=== PATIENT | female | born 1985 | race Caucasian/White ===

== ENCOUNTER 2020-12-28 19:26 | Emergency (ER) | payer BC ==
[2020-12-28] MEDS ORDERED: DESYREL DIVIDO150 M1 PO (19:39)
[2020-12-28] MEDS ORDERED: VIIBRYD40 MG PO (19:39)
[2020-12-28 20:20] VITALS: BP 110/81
== END 2020-12-28 20:20 | disposition home or self-care (01) ==
LOC: ED 19:26
DX: S61.212A Laceration without foreign body of right middle finger without damage to nail, initial encounter (principal); F32.9 Major depressive disorder, single episode, unspecified; Z88.0 Allergy status to penicillin; Z88.1 Allergy status to other antibiotic agents; Z79.899 Other long term (current) drug therapy; W26.0XXA Contact with knife, initial encounter; Y92.009 Unspecified place in unspecified non-institutional (private) residence as the place of occurrence of the external cause

== ENCOUNTER 2022-10-09 14:17 | Emergency (ER) | payer BC ==
[~2022-10-09] VITALS: Ht 170.2 cm; Wt 79.1 kg
[~2022-10-09 14:17] MED LIST: DESYREL DIVIDO150 M1 PO; VIIBRYD40 MG PO
[2022-10-09] MEDS ORDERED: SUMATRIPTAN20 MG NS (14:30)
[2022-10-09] MEDS ORDERED: PREDNISONE10 MG PO (14:30)
[2022-10-09 15:55] VITALS: BP 121/82
== END 2022-10-09 15:48 | disposition home or self-care (01) ==
LOC: ED 14:17
DX: M54.2 Cervicalgia (principal); F06.4 Anxiety disorder due to known physiological condition; F32.9 Major depressive disorder, single episode, unspecified

== ENCOUNTER 2022-11-14 14:55 | Emergency (ER) | payer BC ==
[~2022-11-14 14:55] MED LIST changes: +PREDNISONE10 MG PO; +SUMATRIPTAN20 MG NS
[2022-11-14 15:13] VITALS: BP 123/94
[2022-11-14] MEDS ORDERED: DULOXETINE20 MG PO (15:53)
[2022-11-14] MEDS ORDERED: TIZANIDINE2 MG PO (15:53)
[2022-11-14 15:54] LABS: BASO # 0.03 K/mm3 (0.02-0.10); EOS # 0.06 K/mm3 (0.04-0.40); EOS % 0.6 % (1.0-5.0); HEMATOCRIT 42.6 % (37.0-47.0); HEMOGLOBIN 14.3 g/dL (12.5-16.0); LYMPH# 1.79 K/mm3 (1.50-4.00); MEAN CELL VOLUME 93 fl (78-100); MEAN CORPUSCULAR HEMOGLOBIN 31 pg (27-31); MEAN CORPUSCULAR HGB CONC 34 g/dL (33-37); MONO # 0.68 K/mm3 (0.20-0.80); NEU # 7.27 K/mm3 (1.40-6.50); PLATELET COUNT 297 K/mm3 (130-400); RED BLOOD COUNT 4.59 M/mm3 (4.10-5.30); RED CELL DISTRIBUTION WIDTH 12.5 % (11.5-14.5); WHITE BLOOD COUNT 9.9 K/mm3 (4.8-10.8)
[2022-11-14 16:00] LABS: ALBUMIN 4.3 g/dL (3.5-5.0); POTASSIUM 3.6 mmol/L (3.5-5.1); SODIUM 138 mmol/L (136-145)
[2022-11-14 16:03] LABS: GLUCOSE 97 mg/dL (65-105); TOTAL PROTEIN 7.3 g/dL (6.4-8.3)
[2022-11-14 16:04] LABS: CARBON DIOXIDE 25 mmol/L (22-29)
[2022-11-14 16:05] LABS: TOTAL BILIRUBIN 0.3 mg/dL (0.2-1.2)
[2022-11-14 16:08] LABS: AST-SGOT 30 U/L (5-34)
[2022-11-14 16:10] LABS: ALCOHOL IN-HOUSE < 10 mg/dL (<10); ALT/SGPT 46 U/L (0-55)
[2022-11-14 16:18] LABS: URINE COLOR YELLOW
[2022-11-14 16:19] LABS: URINE APPEARANCE HAZY; URINE BILIRUBIN NEGATIVE (NEGATIVE); URINE BLOOD 50 ery/uL (NEGATIVE); URINE GLUCOSE NEGATIVE (NEGATIVE); URINE KETONE NEGATIVE (NEGATIVE); URINE LEUKOCYTE ESTERASE NEGATIVE (NEGATIVE); URINE NITRATE NEGATIVE (NEGATIVE); URINE PROTEIN(semi-quant) TRACE (NEGATIVE); URINE UROBILINOGEN NORMAL (NORMAL); URINE WBC 0-1 /hpf (0-3)
== END 2022-11-14 17:20 | disposition left against medical advice (07) ==
LOC: ED 14:55
PROVIDERS: Nurse Practitioner
DX: F22 Delusional disorders (principal); F41.9 Anxiety disorder, unspecified; F32.A Depression, unspecified; Z28.310 Unvaccinated for COVID-19; Z79.899 Other long term (current) drug therapy